=== PATIENT | female | born 1950 | race Caucasian/White ===

== ENCOUNTER 2018-08-02 14:16 | Emergency (ER) | payer MEDICARE, BC ==
[~2018-08-02] VITALS: Ht 165.1 cm; Wt 52.2 kg
--- NOTE | 2018-08-02 14:54 | NUR ---
Dr Burton at the bedside for MSE.
--- NOTE | 2018-08-02 15:39 | NUR ---
Patient discharged to home in stable condition. Written and verbal after care instructions given. Patient verbalizes understanding of instructions. Taken by home.
[2018-08-02 15:45] VITALS: BP 115/66
== END 2018-08-02 15:46 | disposition home or self-care (01) ==
LOC: ER 14:16
DX: S92.354A Nondisplaced fracture of fifth metatarsal bone, right foot, initial encounter for closed fracture (principal); X58.XXXA Exposure to other specified factors, initial encounter; Y93.89 Activity, other specified; Y92.89 Other specified places as the place of occurrence of the external cause; Y99.8 Other external cause status
CPT/HCPCS: 73630; A4663